=== PATIENT | female | born 1985 | race Caucasian/White ===

== ENCOUNTER 2016-12-11 06:16 | Day surgery (SDC) | payer OTHER ==
[~2016-12-11] VITALS: Ht 170.2 cm; Wt 129.4 kg
[2016-12-11 07:17] LABS: HCG UR LOT HCG7030192
[2016-12-11 07:26] LABS: PATH.CAST-FLAG NOT PRESENT; SPERM-FLAG NOT PRESENT; SRC-FLAG NOT PRESENT; XTAL-FLAG NOT PRESENT; YLC-FLAG NOT PRESENT
[2016-12-11] MEDS ORDERED: LACTATED RINGERS 1,000 ML IV SCH (07:26)
[2016-12-11] MEDS ORDERED: HYDR-3237 PO (07:28)
[2016-12-11 07:31] VITALS: BP 126/85
[2016-12-11 07:34] LABS: HCG UR OBC PASS
[2016-12-11 07:44] LABS: ASPARTATE AMINO TRANSFERASE 10 U/L (15-37); BLOOD UREA NITROGEN 15 mg/dL (7-18)
[2016-12-11] MEDS ORDERED: PROPOFOL 10 MG/ML, 20ML ONE (08:28)
[2016-12-11] MEDS ORDERED: CEFAZOLIN 1,000 MG ONE (08:28)
[2016-12-11] MEDS ORDERED: DEXAMETHASONE 4 MG/ML, 1ML ONE (08:28)
[2016-12-11] MEDS ORDERED: METOCLOPRAMIDE 5 MG/ML, 2ML ONE (08:28)
[2016-12-11] MEDS ORDERED: ONDANSETRON 2MG/ML, 2ML ONE (08:28)
[2016-12-11] MEDS ORDERED: HYDROmorphone 1 MG/ML, 1ML IV PRN (08:30)
[2016-12-11] MEDS ORDERED: MEPERIDINE/PF 25MG/0.5ML IVPush PRN (08:30)
[2016-12-11] MEDS ORDERED: DIAZEPAM 5 MG/ML, 2ML IVPush PRN (08:30)
[2016-12-11] MEDS ORDERED: LABETALOL 5MG/ML, 20ML IV PRN (08:30)
[2016-12-11] MEDS ORDERED: hydrALAzine 20 MG/ML, 1ML IV PRN (08:30)
[2016-12-11] MEDS ORDERED: PROMETHAZINE 25 MG/ML, 1ML IV PRN (08:30)
[2016-12-11] MEDS ORDERED: OXYcodone 5 MG/5 ML ORAL.SOL UDC PO PRN (08:30)
[2016-12-11] MEDS ORDERED: ONDANSETRON 2MG/ML, 2ML IVPush PRN (08:30)
[2016-12-11] MEDS ORDERED: MIDAZOLAM 1 MG/ML, 2ML IV PRN (08:30)
[2016-12-11] MEDS ORDERED: FENTANYL PF 100 MCG/2ML IV PRN (08:30)
[2016-12-11] MEDS ORDERED: FENTANYL PF 100 MCG/2ML ONE (08:49)
[2016-12-11] MEDS ORDERED: OXYcodone 5 MG/5 ML ORAL.SOL UDC ONE (09:11)
== END 2016-12-11 11:10 | disposition home or self-care (01) ==
LOC: OUT 06:16
PROVIDERS: ATTEND Urology
DX: N20.1 Calculus of ureter (principal); Z87.440 Personal history of urinary (tract) infections; E66.01 Morbid (severe) obesity due to excess calories; Z68.42 Body mass index [BMI] 45.0-49.9, adult
CPT/HCPCS: 36415; 52351; 74000; 76000; 80053; 81001; 81025; 87086; J0690; J1100; J2405; J2704; J2765; J3010; J7120